=== PATIENT | female | born 1990 | race African-American/Black ===

== ENCOUNTER 2025-03-27 08:51 | Emergency (ER) | payer MEDICAID, OTHER ==
[~2025-03-27] VITALS: Ht 157.5 cm; Wt 58.7 kg
[2025-03-27 10:28] VITALS: BP 148/86; PULSE 96; RESP 14; TEMP 98.6; O2SAT 97
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
--- NOTE | 2025-03-27 11:15 | DVH ---
EXAM: XY R WRIST 3+ VIEW XRAY HISTORY: Fall. paiin to distal radius COMPARISON: None available. TECHNIQUE: 3 views of the right wrist were performed. FINDINGS: Acute minimally displaced fracture of the distal radial metaphysis. No significant degenerative changes. Mild soft tissue swelling about the wrist. IMPRESSION: Acute minimally displaced fracture of the distal radial metaphysis.
== END 2025-03-27 12:14 | disposition home or self-care (01) ==
LOC: ER 08:51
DX: S52.591A Other fractures of lower end of right radius, initial encounter for closed fracture (principal); W19.XXXA Unspecified fall, initial encounter; Y93.89 Activity, other specified; Y92.89 Other specified places as the place of occurrence of the external cause; Y99.8 Other external cause status
CPT/HCPCS: 29125; 73110